=== PATIENT | female | born 1960 | race Caucasian/White ===

== ENCOUNTER → 2019-10-21 07:32 | Outpatient (CLI) | payer BC, SELFPAY ==
--- NOTE | ~2019-10-21 | MR_ITS ---
EXAMINATION: MR brain/brain stem wo/w con DATE: 10/21/2019 08:33 INDICATION: Paresthesia of the upper and lower extremities of both sides. TECHNIQUE: Magnetic resonance imaging (MRI) of the brain and brainstem was performed without and with 15 mL MultiHance intravenous contrast. Sequences included sagittal and axial T1-weighted FSE, axial diffusion-weighted FS EPI, axial T2*-weighted GRE, axial T2-weighted FLAIR Propeller, and axial T2-we ighted Propeller. Postcontrast sequences included axial and coronal T1-weighted FSE. Apparent diffusi on coefficient (ADC) maps were created. COMPARISON: None. FINDINGS: There is no intracranial hemorrhage, acute infarction, or abnormal intracranial mass lesion . The ventricles are normal in size. There is a small right mastoid effusion. The orbits are normal. The paranasal sinuses are clear. IMPRESSION: 1. Normal brain. Reviewed, dictated and finalized at location B. IMPRESSION: 1. Normal brain.
[2019-10-21 08:18] LABS: Estimated Glomerular Filt Rate > 60
== END ==
DX: R20.2 Paresthesia of skin (principal)
CPT/HCPCS: 36415; 70553; A9577